=== PATIENT | female | born 1985 | race Caucasian/White ===

== ENCOUNTER 2019-03-11 19:00 | Emergency (ER) | payer OTHER ==
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
[2019-03-11] MEDS ORDERED: Diphtheria,Pertussis(Acell),Tetanus Vaccine 0.5 ML SDV IM ONE (19:28)
[2019-03-11] MEDS: Acetaminophen/oxyCODONE 325-5 MG Tab PO ONE ×2 (19:28→20:04)
[2019-03-11] MEDS ORDERED: Ibuprofen 600 MG Tab PO ONE (19:28)
[2019-03-11] MEDS ORDERED: Acetaminophen/HYDROcodone 325-5 MG Tab PO ONE (19:59)
--- NOTE | 2019-03-11 20:36 | CRLCR ---
INDICATION: Injury with pain TECHNIQUE: Two-view left clavicle COMPARISON: None FINDINGS: There is an acute comminuted distal left clavicular shaft fracture with displacement measuring up to 16 millimeters. No other fracture or osseous lesion is seen. IMPRESSION: Acute comminuted and displaced distal left clavicular shaft fracture. Dictated by Avtar Evans MD @ Mar 11 2019 8:28PM Signed by Dr. Avtar Evans @ Mar 11 2019 8:34PM
== END 2019-03-11 21:10 | disposition home or self-care (01) ==
LOC: JP.ED 19:00
DX: S42.032A Displaced fracture of lateral end of left clavicle, initial encounter for closed fracture (principal); Z23 Encounter for immunization; V86.99XA Unspecified occupant of other special all-terrain or other off-road motor vehicle injured in nontraffic accident, initial encounter
CPT/HCPCS: 73000; 90471; 90715; 99283; A9270